=== PATIENT | male | born 1950 | race Asian ===

== ENCOUNTER 2018-08-09 10:38 | Emergency (ER) | payer OTHER ==
[~2018-08-09] VITALS: Ht 175.3 cm; Wt 99.7 kg
[~2018-08-09 10:38] MED LIST: ASPI-817 PO; BACTDS PO; CEPH-443 PO; GLIP5TAB13 PO; HYDR50TA3 PO; IBUP-1542 PO; LISI40TA3 PO; SIMV20TA2 PO
[2018-08-09 10:45] VITALS: Ht 175.3 cm; Wt 99.7 kg
[2018-08-09] MEDS ORDERED: CEPH-443 PO (14:16)
[2018-08-09] MEDS ORDERED: CLOT30CR24 TOP (14:16)
[2018-08-09] MEDS ORDERED: ACET500C5 PO (14:16)
--- NOTE | 2018-08-09 14:22 | ERD ---
ER Documentation Chief Complaint Chief Complaint GENTIAL ITCHING X 1 MONTH HPI 67-year-old male patient with no significant past medical history presents to ED complaining of itching that started 3 months ago. Patient reports that the inner thighs are especially itchy. Patient also reports that it is slightly painful and rates it a 5 out of 10. States that he was applying triamcinolone cream for 1 month however it did not improve his symptoms and decided to switch over to Vaseline. Denies any scrotal pain or penile pain. Denies any penile discharge. Denies any fever, chills, nausea, vomiting, abdominal pain, chest pain, shortness of breath. Denies any concerns for STDs. Denies any bloody stools, rectal pain. ROS All systems reviewed and are negative except as per history of present illness. Medications Home Meds Active Scripts Acetaminophen* (Tylophen*) 500 Mg Capsule, 1 CAP PO Q6H PRN for PAIN AND OR ELEVATED TEMP, #20 CAP Prov:ANNALISE SLADE PA-C 08/09/18 Cephalexin* (Keflex*) 500 Mg Capsule, 500 MG PO QID for 7 Days, CAP Prov:ANNALISE SLADE PA-C 08/09/18 Clotrimazole* (Clotrimazole* AF) 1% - 30 Gm Cream.gm., 1 APPLIC TOP BID for 28 Days, TUB Prov:ANNALISE SLADE PA-C 08/09/18 Sulfamethoxazole-Trimethoprim* (Bactrim* DS) 800-160 Mg Tab, 1 TAB PO BID for 7 Days, TAB Prov:INÉS HUMPHREY MD 04/15/15 Cephalexin* (Keflex*) 500 Mg Capsule, 500 MG PO TID for 7 Days, CAP Prov:INÉS HUMPHREY MD 04/15/15 Ibuprofen* (Ibuprofen*) 600 Mg Tablet, 600 MG PO Q8 for PAIN AND/OR INFLAMMATION, #30 TAB Prov:INÉS HUMPHREY MD 04/15/15 Reported Medications Simvastatin (Simvastatin) 20 Mg Tablet, 20 MG PO HS, TAB 04/15/15 Glipizide* (Glipizide*) 5 Mg Tablet, 5 MG PO BID, TAB 04/15/15 Lisinopril* (Lisinopril*) 40 Mg Tablet, 80 MG PO DAILY, TAB 04/15/15 Aspirin* (Aspirin* EC) 81 Mg Tablet.dr, 81 MG PO DAILY, TAB 04/15/15 Hydrochlorothiazide* (Hydrochlorothiazide*) 50 Mg Tab, 50 MG PO DAILY, TAB 04/15/15 Allergies Allergies: Coded Allergies: No Known Allergy (Unverified , 04/15/15) PMhx/Soc History of Surgery: No Anesthesia Reaction: No Hx Neurological Disorder: No Hx Respiratory Disorders: No Hx Cardiac Disorders: Yes (htn) Hx Psychiatric Problems: No Hx Miscellaneous Medical Probl: Yes (borderline diabetes) Hx Alcohol Use: No Hx Substance Use: No Hx Tobacco Use: No Smoking Status: Never smoker FmHx Family History: No diabetes, No coronary disease Physical Exam Vitals Vital Signs Date Temp Pulse Resp B/P (MAP) Pulse Ox O2 O2 Flow FiO2 Time Delivery Rate 08/09/18 99.7 90 18 167/83 98 10:45 (111) Physical Exam Const: [id number], well-nourished. In no acute distress. Head: Atraumatic, normocephalic Eyes: Normal Conjunctiva without injection. No purulent discharge. ENT: Normal external ear, nose. Moist oropharynx without tonsillar exudates. Non-erythematous pharynx. Uvula midline. No drooling. No trismus. Neck: No cervical midline tenderness. Full range of motion. No meningismus. No cervical lymphadenopathy. No JVD. Resp: Clear to auscultation bilaterally. No wheezing, rhonchi, rales, or crackles. No accessory muscle use. No retractions. Cardio: Regular rate and rhythm. No murmurs, rubs or gallops. Abd: Soft, nontender, non distended. Normal bowel sounds. No palpable masses. No rebound tenderness. No guarding. Negative McBurney's point. Negative psoas sign. Negative obturator sign. : Bilateral inner thigh erythema with flake-like lesions ending towards the bilateral buttocks. No anal fluctuance. No tenderness palpation of the b ilateral scrotum or warmth to touch. Circumcised penis. No penile discharge. Skin: No petechiae or rashes Back: No midline tenderness. No CVA tenderness. Ext: No cyanosis, or edema. Neur: Awake and alert. Normal gait. Normal coordination. Psych: Normal Mood and Affect Procedures/MDM 67-year-old male patient with a past medical history of hypertension presents to ED complaining of groin itchiness that started intermittently for the last 3 months. Patient is afebrile and nontoxic-appearing. Patient has a blood pressure is 167/83. Blood Pressure Assessment: Patient's blood pressure was elevated (>120/80) but appears stable without evidence of hypertension emergency or urgency. The patient was counseled about the risks of hypertension and urged to pursue outpatient monitoring and therapy within a week with their primary care physician. Patient likely has tinea of the groin area. Patient will be given a prescription for clotrimazole and to be used for at least 4 weeks. Since patient has also been scratching the area, patient also will be given a prescription for Keflex to cover for very cellulitis. Low suspicion for Karina's gangrene, urinary tract infection, pyelonephritis, testicular torsion, STDs, herpes, acute abdomen, sepsis, or other emergent conditions. Low suspicion for anaphylaxis, scabies, SJS/TEN, TSS, Lyme's Disease, syphilis, RMSF, shingles, disseminated gonorrhea chlamydia, DIC, TTP, ITP, erythema multiforme, sepsis, cellulitis, necrotizing fasciitis, gangrene, menin gococcemia, allergic contact dermatitis, urticaria, eczema, or other emergent conditions. Diagnosis: Tinea of the groin Discharge medications: Tylenol Clotrimazole, Keflex Follow up with primary care physician in 1-2 days. Instructed patient to return to the ED sooner for any worsening symptoms. Patient's questions were answered. Patient is hemodynamically stable. Patient understood and agreed with discharge plan. Patient discharged stable. Disclaimer: Inadvertent spelling and grammatical errors are likely due to EHR/dictation software use and do not reflect on the overall quality of patient care. Also, please note that the electronic time recorded on this note does not necessarily reflect the actual time of the patient encounter. Departure Diagnosis: Primary Impression: Tinea of groin Condition: Stable Patient Instructions: Jorge Castillo Itch Referrals: COMMUNITY CLINICS YOU HAVE RECEIVED A MEDICAL SCREENING EXAM AND THE RESULTS INDICATE THAT YOU DO NOT HAVE A CONDITION THAT REQUIRES URGENT TREATMENT IN THE EMERGENCY DEPARTMENT. FURTHER EVALUATION AND TREATMENT OF YOUR CONDITION CAN WAIT UNTIL YOU ARE SEEN IN YOUR DOCTORS OFFICE WITHIN THE NEXT 1-2 DAYS. IT IS YOUR RESPONSIBILITY TO MAKE AN APPOINTMENT FOR FOLOW-UP CARE. IF YOU HAVE A PRIMARY DOCTOR --you should call your primary doctor and schedule an appointment IF YOU DO NOT HAVE A PRIMARY DOCTOR YOU CAN CALL OUR PHYSICIAN REFERRAL HOTLINE AT IF YOU CAN NOT AFFORD TO SEE A PHYSICIAN YOU CAN CHOSE FROM THE FOLLOWING [facility] [address] [facility] [address] [facility] [address] [facility] [facility] [address] [facility] [address] [facility] [facility] [address]. [facility] [address] [facility]. [facility] YOU HAVE RECEIVED A MEDICAL SCREENING EXAM AND THE RESULTS INDICATE THAT YOU DO NOT HAVE A CONDITION THAT REQUIRES URGENT TREATMENT IN THE EMERGENCY DEPARTMENT. FURTHER EVALUATION AND TREATMENT OF YOUR CONDITION CAN WAIT UNTIL YOU ARE SEEN IN YOUR DOCTORS OFFICE WITHIN THE NEXT 1-2 DAYS. IT IS YOUR RESPONSIBILITY TO MAKE AN APPOINTMENT FOR FOLOW-UP CARE. IF YOU HAVE A PRIMARY DOCTOR --you should call your primary doctor and schedule and appointment IF YOU DO NOT HAVE A PRIMARY DOCTOR YOU CAN CALL OUR PHYSICIAN REFERRAL HOTLINE AT . IF YOU CAN NOT AFFORD TO SEE A PHYSICIAN YOU CAN CHOSE FROM THE FOLLOWING [facility]: [facility] [address] [place] [address] [facility] [address] [place] [address] [facility] [address] [place] [address] [facility] Additional Instructions: Call your primary care doctor TOMORROW for an appointment during the next 2-3 days.See the doctor sooner or return here if your condition worsens before your appointment time. Follow up in 2 days in your clinic for wound check. ANNALISE SLADE PA-C Aug 09, 2018 14:22
[2018-08-09 14:33] VITALS: BP 156/86; PULSE 94; RESP 18
== END 2018-08-09 14:36 | disposition home or self-care (01) ==
LOC: FTE 10:38
DX: B35.6 Tinea cruris (principal); I10 Essential (primary) hypertension; Z79.82 Long term (current) use of aspirin; Z79.84 Long term (current) use of oral hypoglycemic drugs
CPT/HCPCS: 99283